=== PATIENT | male | born 1960 | race Caucasian/White ===

== ENCOUNTER → 2020-05-18 02:21 | Outpatient (CLI) | payer OTHER, SELFPAY ==
[2020-05-18 22:46] LABS: SARS-CoV-2 RNA PCR Negative
== END ==
PROVIDERS: PCP Internal Medicine; Visit Provider Internal Medicine Gastroenterology
DX: Z01.812 Encounter for preprocedural laboratory examination (principal); Z20.822 Contact with and (suspected) exposure to COVID-19
CPT/HCPCS: C9803; U0003; U0005

== ENCOUNTER 2020-05-21 00:47 | Day surgery (SDC) | payer OTHER, SELFPAY ==
[2020-05-10 12:40] VITALS: BMI 33.7
[2020-05-21 07:25] VITALS: BMI 32.9
[2020-05-21] MEDS: LACTATED RINGERS 1,000 ML 150 ML IV CONT (07:42)
--- NOTE | 2020-05-21 07:46 | WPDANESEPPF ---
Anes - Initial Pre Proc Eval Procedure: Operation Date: 05/21/20 08:30 Proposed Procedures p Screening Colonoscopy - Alex Sinclair MD Date/Time: 05/21/20 07:46 Surgeon: Alex Sinclair MD Pre Op Diagnosis: Neoplasm Screening Patient Data Age: 59 Gender: M Height: 6 ft 2 in Weight: 116.4 kg Allergies Allergy/AdvReac Type Severity Reaction Status Date / Time prochlorperazine Allergy Severe CONVULSONS/MUSCLE Verified 05/21/20 07:22 JERKS Home Medications Medication Instructions Recorded Confirmed Type verapamil 180 mg 24 hr 180 mg PO DAILY #90 cap 09/02/19 05/10/20 Rx capsule,extended release testosterone cypionate 200 mg/mL 200 mg IM .COMPLEX #10 ml 12/09/19 05/10/20 Rx intramuscular oil fenofibrate nanocrystallized 145 145 mg PO DAILY #90 tablet 12/19/19 05/10/20 Rx mg tablet lisinopril 20 mg tablet 20 mg PO DAILY #90 tablet 12/23/19 05/10/20 Rx syringe with needle 3 mL 23 x 1 See Rx Instructions .ROUTE 02/13/20 05/10/20 Rx .COMPLEX #6 syringe atorvastatin 20 mg tablet See Rx Instructions .ROUTE 04/05/20 05/10/20 Rx .COMPLEX #30 tablet sodium,potassium,mag sulfates 17.5 See Rx Instructions PO .COMPLEX 04/22/20 05/10/20 Rx gram-3.13 gram-1.6 gram oral soln #354 ml dextroamphetamine-amphetamine ER 20 mg PO DAILY #30 cap 05/06/20 05/10/20 Rx 20 mg 24hr capsule,extend release venlafaxine 150 mg PO DAILY 05/10/20 05/10/20 History Patient hx anesthesia problems: none Family hx anesthesia problems: none PMFSH Past Medical History Medical History Left forearm fracture Left wrist fracture Screening for colon cancer Surgical History Surgical History Hx of hernia repair Family History Family History Sibling Family history of mental disorder Mother Family history of lung cancer Father Colon polyp Social History Social History Smoking status: Never smoker Alcohol intake: never Living arrangements: with family Gender identity (if verbalized by the patient): Male Spiritual care concerns: No Anes - Eval Final PreProcedure Day of Procedure 05/21/20 07:46 Patient weight: obese Heart: regular rate and rhythm Lungs: clear to auscultation Airway: Mallampati scale class II Neurological: alert and oriented Last oral intake: >/= 8 hours ASA classification: III Emergent: no Anesthetic plan: proceed Anesthesia type and monitoring: general GIVS and standard monitoring Informed Consent: The patient's anesthetic plan and its attendant risks and benefits were discussed with the patient/family/POA. Questions were solicited and answers provided to the satisfaction of the patient/family/POA.
--- NOTE | 2020-05-21 07:57 | PM.HPGS ---
History of Present Illness History of Present Illness Consent: Risks, benefits, and alternatives have been discussed and questions answered. Patient agrees to proceed with procedure. Chief complaint: Neoplasm Screening Narrative: Kavon Cortez is a 59 year old male here for screening colonoscopy, last one 8 years ago with polyp, grandfather with colon cancer Review of Systems Constitutional: Constitutional: Denies headache(s) and Denies weakness Eyes: Eyes: Denies blurry vision ENT: Reports Normal hearing present, Denies headache(s) and Denies neck pain Cardiovascular: Cardiovascular: Denies chest pain and Denies dyspnea Respiratory: Respiratory: Denies dyspnea Gastrointestinal: Gastrointestinal: Reports no additional gastrointestinal complaints Genitourinary: Genitourinary: Denies dysuria Musculoskeletal: Musculoskeletal: Denies neck pain Integumentary/Breasts: Skin/Breast: Denies dry skin Neurologic: Reports Normal hearing present, Denies headache(s) and Denies weakness Psychiatric: Psychiatric: Denies anxiety Endocrine: Endocrine: Denies change in body appearance Hematologic/Lymphatic: Hematologic/Lymphatic: Denies easy bleeding Allergic/Immunologic: Allergic/Immunologic: Denies urticaria PMFSH Past Medical History Medical History Left forearm fracture Left wrist fracture Screening for colon cancer Surgical History Surgical History Hx of hernia repair Family History Family History Sibling Family history of mental disorder Mother Family history of lung cancer Father Colon polyp Social History Social History Smoking status: Never smoker Alcohol intake: never Living arrangements: with family Gender identity (if verbalized by the patient): Male Spiritual care concerns: No Meds Home Medications and Allergies Home Medications Medication Instructions Recorded Confirmed Type verapamil 180 mg 24 hr 180 mg PO DAILY #90 cap 09/02/19 05/10/20 Rx capsule,extended release testosterone cypionate 200 mg/mL 200 mg IM .COMPLEX #10 ml 12/09/19 05/10/20 Rx intramuscular oil fenofibrate nanocrystallized 145 145 mg PO DAILY #90 tablet 12/19/19 05/10/20 Rx mg tablet lisinopril 20 mg tablet 20 mg PO DAILY #90 tablet 10/13/20 03/01/21 Rx syringe with needle 3 mL 23 x 1 See Rx Instructions .ROUTE 02/13/20 05/10/20 Rx .COMPLEX #6 syringe atorvastatin 20 mg tablet See Rx Instructions .ROUTE 04/05/20 05/10/20 Rx .COMPLEX #30 tablet sodium,potassium,mag sulfates 17.5 See Rx Instructions PO .COMPLEX 04/22/20 05/10/20 Rx gram-3.13 gram-1.6 gram oral soln #354 ml dextroamphetamine-amphetamine ER 20 mg PO DAILY #30 cap 05/06/20 05/10/20 Rx 20 mg 24hr capsule,extend release venlafaxine 150 mg PO DAILY 05/10/20 05/10/20 History Allergies Allergy/AdvReac Type Severity Reaction Status Date / Time prochlorperazine Allergy Severe CONVULSONS/MUSCLE Verified 05/21/20 07:22 JERKS Exam Const: General: comfortable and no acute distress HENMT: General nose exam: Normal nares present Eyes: General: appearance normal, both eyes and all related structures Neck: Neck: no JVD Resp: Auscultation: clear to auscultation bilaterally Cardio: Rate: regular rate Rhythm: regular rhythm GI: Inspection: non-distended GI Palp: Yes Soft to palpation Skin: General skin exam: normal color Neuro: General: gait normal Speech: normal speech Extrem: General: normal to inspection Psych: Mental Status: mental status grossly normal Assessment and Plan Assessment and plan (1) Screening for colon cancer: Code(s): Z12.11 - Encounter for screening for malignant neoplasm of colon Status: Acute Assessment and Plan: proceed with
[2020-05-21 08:26] VITALS: BP 126/79; PULSE 73; RESP 20; O2SAT 96
[2020-05-21 08:36] VITALS: BP 128/83; PULSE 74; RESP 24; O2SAT 95
[2020-05-21 08:46] VITALS: BP 130/93; PULSE 69; RESP 17; O2SAT 96
== END 2020-05-21 08:53 | disposition home or self-care (01) ==
PROVIDERS: PCP Internal Medicine; Visit Provider Internal Medicine Gastroenterology
PROC: 0DJD8ZZ Inspection of Lower Intestinal Tract, Via Natural or Artificial Opening Endoscopic (ICD-10-PCS; CPT 45378; principal; 2020-05-21 08:30)
DX: Z12.11 Encounter for screening for malignant neoplasm of colon (principal); K63.5 Polyp of colon; K57.30 Diverticulosis of large intestine without perforation or abscess without bleeding; K64.4 Residual hemorrhoidal skin tags; E66.9 Obesity, unspecified; Z68.32 Body mass index [BMI] 32.0-32.9, adult
CPT/HCPCS: 45385; 88305; C9803; J2704; J7120; U0003; U0005

== ENCOUNTER 2024-03-07 15:15 | Emergency (ER) | payer OTHER, SELFPAY ==
[2024-03-07 15:38] VITALS: BP 157/106; PULSE 87; RESP 18; TEMP 36.4; O2SAT 97
== END 2024-03-07 16:29 | disposition left against medical advice (07) ==
LOC: ANHED 16:12
PROVIDERS: PCP Nurse Practitioner Family
DX: R51.9 Headache, unspecified (principal); R53.83 Other fatigue
CPT/HCPCS: 99199

== ENCOUNTER 2024-06-03 09:46 | Outpatient (CLI) | payer OTHER, SELFPAY ==
--- OUTSIDE RECORDS SUMMARY | 2024-06-03 11:15 | XMS_ITS | Referral Summary ---
Author Organization [facility] Address [facility] [place] [address] Care Team Providers Care Cd Reactor Operator Head Name Role Phone Charley Pierce NP Primary Care Provider [phone] Allergies Active Allergy Reactions Criticality Noted Date Comments Prochlorperazine Other (See comments) Low Muscle spasms Not sure if I'm allergic; I may have taken too much Medications atorvastatin (LIPITOR) 20 mg tablet Take 1 tablet (20 mg total) by mouth daily 4 Active fenofibrate nanocrystallized (TRICOR) 48 mg tablet Take 1 tablet (48 mg total) by mouth daily 4 Active venlafaxine XR (EFFEXOR-XR) 150 mg 24 hr capsule Take 1 capsule (150 mg total) by mouth daily Active lisinopriL (PRINIVIL,ZESTRIL) 40 mg tablet Take 0.5 tablets (20 mg total) by mouth daily 4 Active verapamiL (CALAN) 40 mg tablet Take 1 tablet (40 mg total) by mouth daily Active aspirin 81 mg enteric coated tabletIndications:pr evention of thrombosis Take 1 tablet (81 mg total) by mouth 2 (two) times a day for 14 days 28 tablet 4 Active Active Problems Problem Noted Date Diagnosed Date Pain 07/02/2023 Closed fracture of left proximal humerus 024 Obesity 01/04/2013 Obstructive sleep apnea syndrome 01/03/2013 Hyperlipidemia 01/03/2013 Generalized anxiety disorder 08/11/2010 Social History Tobacco Use Types Packs/Day Years Used Date Smoking Tobacco: Never Smokeless Tobacco: Never Tobacco Cessation:Counseling Given: Not Answered AUDIT-C Answer Date Recorded Q1: How often do you have a drink containing alc ohol? Monthly or less 07/02/2023 Q2: How many drinks containi ng alcohol do you have on a typical day when you are drinking? 1 or 2 07/02/2023 Q3: How often do you have si x or more drinks on one occasion? Never 07/02/2023 Personal Safety Answer Date Recorded Have you ever been in or are you currently in a harmful physical or emotional relationship or is someone making you feel afraid or unsafe? Denies 07/02/2023 Sex and Gender Information Value Date Recorded Sex Assigned at Not on file Legal Sex Male 12:55 PM STRAW BALER Gender Identity Not on file Sexual Orientation Not on file Last Filed Vital Signs Vital Sign Reading Time Taken Comments Blood Pressure 103/69 07/02/2023 4:35 PM CDT Pulse 82 07/02/2023 4:40 PM CDT Temperature 36.6 C (97.9 F) 07/02/2023 2:14 PM CDT Respiratory Rate 16 07/02/2023 4:40 PM CDT Oxygen Saturation 93% 07/02/2023 4:40 PM CDT Inhaled Oxygen Concentration - - Weight 108.9 kg (240 lb) 08/10/2023 6:50 PM CDT Height 188 cm (6' 2 ) 08/10/2023 6:50 PM CDT Body Mass Index 30.81 08/10/2023 6:50 PM CDT Plan of Treatment Not on file Medical Devices Implanted Type Area Key Cutter Device Identifier Shelf Expiration Date Model / Serial / Lot Synthes Lcp Combi Philos [id number] 3 Hole Shaft Lock Compression 241.901 - [id number] Implanted:Qty: 1 on 07/02/2023 by Dedrick Buchanan MD at [facility] Synthes I 241.901 / / NONE Synthes 3.5mm 2.9mm 28mm Self Tap Lock Stardrive Conical Head T15 Full 212.110 - [id number] Implanted:Qty: 2 on 07/02/2023 by Dedrick Buchanan MD at [facility] Left: Humerus Synthes I 212.110 / / NONE Synthes 3.5mm 6mm 30mm 2.5mm Self Tap Small Hexagonal Socket Low Profile 204.830 - [id number] Implanted:Qty: 1 on 07/02/2023 by Dedrick Buchanan MD at [facility] [place] Left: Humerus Synthes I 204.830 / / NONE Synthes 3.5mm 2.9mm 32mm Self Tap Lock Stardrive Conical Head T15 Full 212.112 - [id number] Implanted:Qty: 1 on 07/02/2023 by Dedrick Buchanan MD at [facility] Left: Humerus Synthes I 212.112 / / NONE Synthes 3.5mm 2.9mm 45mm Self Tap Lock Stardrive Conical Head T15 Full 212.119 - [id number] Implanted:Qty: 3 on 07/02/2023 by Dedrick Buchanan MD at [facility] Left: Humerus Synthes I 212.119 / / NONE Synthes 3.5mm 2.9mm 50mm Self Tap Lock Stardrive Conical Head T15 Full 212.121 - [id number] Implanted:Qty: 2 on 07/02/2023 by Dedrick Buchanan MD at [facility] Left: Humerus Synthes I 212.121 / / NONE Synthes 3.5mm 2.9mm 40mm Self Tap Lock Stardrive Conical Head T15 Full 212.117 - [id number] Implanted:Qty: 3 on 07/02/2023 by Dedrick Buchanan MD at [facility] [place] Left: Humerus Synthes I 212.117 / / NONE Explanted Type Area Key Cutter Device Identifier Shelf Expiration Date Model / Serial / Lot Synthes 3.5mm 2.9mm 45mm Self Tap Lock Stardrive Conical Head T15 Full 212.119 - [id number] Explanted:Qty: 1 on 07/02/2023 by Dedrick Buchanan MD at [facility] Left: Humerus Synthes I 212.119 / / Synthes Lyndon 1.25mm 150mm Trocar Tip Wire Fixation Stainless Steel 292.12 - [id number] Explanted:Qty: 2 on 07/02/2023 by Dedrick Buchanan MD at [facility] Left: Humerus Synthes 292.12 / / NONE Synthes Lyndon 2mm 150mm Trocar Point Wire Fixation Nonsterile 292.20 - [id number] Explanted:Qty: 3 on 07/02/2023 by Dedrick Buchanan MD at [facility] [place] Left: Humerus Synthes I 292.20 / / NONE Synthes Lyndon 1.6mm 150mm 5mm Trocar Point Thread Wire Fixation 292.71 - [id number] Explanted:Qty: 2 on 07/02/2023 by Dedrick Buchanan MD at [facility] [place] Left: Humerus Synthes I 292.71 / / [place] [address] [place] [address] [facility] PLUS [facility] PL[facility] Care Teams Cd Reactor Operator Head Relationship Specialty Start Date End Date Charley Pierce NP [address] [place] [address] PCP - General Family Medicine 06/20/23
--- OUTSIDE RECORDS SUMMARY | 2024-06-03 11:15 | XMS_ITS | CONTINUITY OF CARE DOCUMENT ---
Author Name liv steffenchetan Address Unknown Organization [facility] Address [address] [place] [address] Phone [phone] Care Team Providers Care Driver Material Handler Name Role Phone Shahab Krueger MD Unavailable Shahab Krueger MD Unavailable [phone] MANRITASHELBY Unavailable [phone] PROBLEMS Condition Status Date Provider Notes Cardiology examination active Shahab Krueger MD Syncope active Shahab Krueger MD Hyperlipidemia active Shahab Krueger MD Essential hypertension active Shahab Krueger MD Abnormal EKG active Shahab Krueger MD Family hx of myocardial infa rction (VT), premature active Shahab Krueger MD Prediabetes active Shahab Krueger MD Abnormal nuclear stress test active Shahab Krueger MD Echocardiogram, abnormal active Shahab swift MD ENCOUNTERS Date Type Provider Location Encounter Diag nosis - In-person encounter Office Visit Shahab Krueger MD [facility] Abnormal nuclear stress testEchocardiogr am, abnormal - In-person encounter Office Visit Shahab Krueger MD [facility] Cardiology examinationSyncopeHyperlipidemiaEssential hypertensionAbnormal EKGFamily hx of myocardial infarction (VT), prematurePrediabetes VITAL SIGNS Date Observation Value Provider Body Mass Index (Ratio) 31.71 kg/m2 Aditya Krueger MD oxygen saturation, oximetry 97 % Susana Curiel blood pressure, diastolic 78 mm[Hg] Rh erlinda Curiel blood pressure, systolic 118 mm[Hg] Niko Curiel pulse rate 68 /min Susana Curiel weight E&M 247 [lb_av] Susana Curiel Body Mass Index (Ratio) 32.99 kg/m2 Aditya Krueger MD blood pressure, cuff size large Ke rrpankaj Beltrán blood pressure, diastolic 82 mm[Hg] Ke rri Jerel blood pressure, systolic 122 mm[Hg] Rupert Beltrán oxygen saturation, oximetry 96 % Kimberly Beltrán respiratory rate E&M 12 /min Kimberly mackay pulse rate 74 /min Kimberly matthews weight E&M 257 [lb_av] Kimberly springerer height E&M 74 [in_i] Kimberly matthews ALLERGIES No Known Drug Allergies HISTORY OF MEDICATION USE Medication Status Instructions Dates Provider Indications Com ments aspirin 81 mg tablet,chewable active CHEW 1 TABLET BY MOUTH ONCE DAILY Jordi Mckeon aspirin 81 mg tablet,chewable completed 1 TABLET BY MOUTH DAILY MUST FILL 3 MONTH SUPPLY PER MEDICAID - Jordi Mckeon carvedilol 3.125 mg tablet active TAKE 1 TABLET BY MOUTH TWICE DAILY Shahab Krueger MD fenofibrate nanocrystallized 48 mg tablet active TAKE 1 TABLET BY MOUTH EVERY DAY Kimberly Beltrán venlafaxine 150 mg capsule,extended release 24hr active TAKE 1 CAPSULE BY MOUTH EVERY DAY Kimberly Beltrán lisinopril 20 mg tablet active TAKE 1 TABLET BY MOUTH EVERY DAY Kimberly Beltrán hydrocodone-acetam inophen 5-325 mg tablet active TAKE 1 TABLET BY MOUTH EVERY 6 HOURS NEEDED FOR SEVERE PAIN Kimberly Beltrán verapamil unspecified unspecified active 180mg a day Kimbelry Beltrán Lipitor 20 mg tablet active Take 1 tablet by mouth once a day Kimberly Beltrán SOCIAL HISTORY Date Observation Value Provider number of grandchildren Shahab Krueger MD smoking status Never smoker Shahab Krueger MD INSURANCE PROVIDERS Payer name Policy type / Coverage type [place] [employer] S [id number] ADVANCE DIRECTIVES Name Date DISCUSSED - NO DECISION MADE TREATMENT PLAN Date Name Performer Cardiology Shahab Krueger MD Cardiology Shahab Krueger MD Cardiology:Dilated L V and abnormal stress vidya, needs cardiac cath to define cardiac anataomy, starting beta khloe and aspirin Shahab Krueger MD Cardiology Shahab Krueger MD Cardiology Shahab Krueger MD Cardiology: H is updated medication list for this problem includes: Fenofibrate Nanocrystallized 48 Mg Tablet (Fenofibrate nanocrystallized) ..... Take 1 tablet by mouth every day Lipitor 20 Mg Tablet (Atorvastatin) ..... Take 1 tablet by mouth once a day Shahab Krueger MD Cardiology: B P today: 122/82 His updated medication list for this problem includes: Lisinopril 20 Mg Tablet (Lisinopril) ..... Take 1 tablet by mouth every day Verapamil Unspecified Unspecified (Verapamil) ..... 180mg a day Shahab Krueger MD Cardiology Shahab Krueger MD Date Name CT Angio Coronaries PROTHROMBIN TIME WIT H INR LIPID PANEL CBC (INCLUDES DIFF/P LT) BASIC METABOLIC PANE L W/EGFR Complete Echo Holter Monitor 48 hr Stress Exercise Card iolite HISTORY OF PROCEDURES Procedure Date Procedure Name Provider Procedure Notes S tatus EKG Fabricio Prasad MD complet ed
--- OUTSIDE RECORDS SUMMARY | 2024-06-03 11:15 | XMS_ITS | Clinical Summary ---
Author Organization [facility] Address [address] [place] [address] Care Team Providers Care Phd Internship Name Role Phone Unavailable Primary Care Provider Unavailabl e Source Comments [facility],non-owned Affiliates and Associated Physician Practices is amultiple site organization consisting of ambulatory clinics and hospital sitesin [place], [place], [place] and [place]. This disclosure is being madepursuant to the Care Everywhere program and may not contain all information available regarding this patient. Last updated 17.[facility] Allergies Active Allergy Reactions Criticality Noted Date Comments Prochlorperazine Myalgias 07/24/2018 Medications * Be aware that medications may not be up to date on this document. Alwaysverify current medications with the patient. Medication Sig Dispensed Refills Start Date End Date Status amphetamine-dextroam phetamine (ADDERALL) 20 MG tablet Take 20 mg by mouth every morning Active venlafaxine XR 24hr (EFFEXOR XR) 150 MG capsule Take 150 mg by mouth daily with breakfast Active VERAPAMIL HCL ER PO Activ e LISINOPRIL PO Active ATORVASTATIN CALCIUM PO Active OtherIndications:BP pill Reasons: BP pill Active fluticasone propionate (FLONASE) 50 MCG/ACT nasal sprayIndications:Raza al Signs and Symptoms Romeo 2 sprays into each nostril once daily Reasons: Signs and Symptoms of Nose Diseases 1 bottles 07/24/2018 Active Social History Tobacco Use Types Packs/Day Years Used Date Smoking Tobacco: Passive Smo ke Exposure - Never Smoker Smokeless Tobacco: Never Sex and Gender Information Value Date Recorded Sex Assigned at Not on file Gender Identity Not on file Sexual Orientation Not on file Last Filed Vital Signs Vital Sign Reading Time Taken Comments Blood Pressure 106/74 07/24/2018 3:48 PM CDT Pulse 72 07/24/2018 3:48 PM CDT Temperature 37.6 C (99.6 F) 07/24/2018 3:48 PM CDT Respiratory Rate 19 07/24/2018 3:48 PM CDT Oxygen Saturation 97% 07/24/2018 3:48 PM CDT Inhaled Oxygen Concentration - - Weight 108.9 kg (240 lb) 07/24/2018 3:48 PM CDT Height 188 cm (6' 2 ) 07/24/2018 3:48 PM CDT Body Mass Index 30.81 07/24/2018 3:48 PM CDT Plan of Treatment Health Maintenance Due Date Last Done Comments COLOGUARD (AGES 45-75) - COL ON CA SCREENING 1961 COLON MONITORING 1961 COLONOSCOPY - COLON CA SCREENING 1961 CT COLONOGRAPHY - COLON CA SCREENING 1961 Colorectal Cancer Screening 1961 FIT - COLON CA SCREENING 1961 FLEX SIG - COLON CA SCREENING 1961 HIV SCREENING 1976 HEPATITIS C SCREENING 08/19/1979 DTAP/TDAP/TD VACCINES (1 - Tdap) 1980 PNEUMOCOCCAL VACCINE 50+ (1 of 1 - PCV) 08/24/2011 ZOSTER VACCINE (1 of 2) 08/24/2011 SCREENING FOR DIABETES 07/24/2018 COVID-19 VACCINE (1 - 2023-2 5 season) 2023 INFLUENZA VACCINE (#1) 2023 DEPRESSION SCREENING 03/12/2024 Respiratory Syncytial Virus (RSV) Vaccine Pt: or over 60 yrs (1 - 1-dose 75+ series) 2036 HEPATITIS B VACCINE Aged Out No longe r eligible based on patient's age to complete this topic HIB VACCINE Aged Out No longer eligi ble based on patient's age to complete this topic HPV VACCINE Aged Out No longer eligi ble based on patient's age to complete this topic MENINGOCOCCAL (Group B) VACC INE SHARED DECISION-MAKING Aged Out No longer eligibl e based on patient's age to complete this topic MENINGOCOCCAL GROUPS A/C/Y/W VACCINE Aged Out No longer eligible b ased on patient's age to complete this topic PNEUMOCOCCAL VACCINE Aged Out No long er eligible based on patient's age to complete this topic
--- OUTSIDE RECORDS SUMMARY | 2024-06-03 11:15 | XMS_ITS | Clinical Summary ---
Author Organization [facility] Address [address] [place] [address] Care Team Providers Care Area Plant Manager Name Role Phone Miguel Tyler DO Primary Care Provider [phone] Allergies No known active allergies Social History Tobacco Use Types Packs/Day Years Used Date Smoking Tobacco: Never Smokeless Tobacco: Never Alcohol Use Standard Drinks/Week Comments Never 0 (1 standard drink = 0.6 oz pur e alcohol) AUDIT-C Answer Date Recorded Q1: How often do you have a drink containing alc ohol? Never 09/26/2020 Average Number of Drinks Not on file 021 Frequency of Binge Drinking Not on file 09/09 Sex and Gender Information Value Date Recorded Sex Assigned at Not on file Legal Sex Male 2:22 PM CDT Gender Identity Not on file Sexual Orientation Not on file Last Filed Vital Signs Vital Sign Reading Time Taken Comments Blood Pressure 136/86 09/26/2020 2:27 PM CDT Pulse 94 09/26/2020 2:27 PM CDT Temperature 37 C (98.6 F) 09/26/2020 2:27 PM CDT Respiratory Rate 18 09/26/2020 2:27 PM CDT Oxygen Saturation 98% 09/26/2020 2:27 PM CDT Inhaled Oxygen Concentration - - Weight 108.9 kg (240 lb) 09/26/2020 2:27 PM CDT Height 188 cm (6' 2 ) 09/26/2020 2:27 PM CDT Body Mass Index 30.81 09/26/2020 2:27 PM CDT Plan of Treatment Health Maintenance Due Date Last Done Comments Colorectal Cancer Screening Colonoscopy (10 Years) 1961 Annual Physical 1964 Hepatitis C 08/24/1979 DTaP, Tdap and Td Vaccines ( 1 - Tdap) 1980 Zoster Vaccines (1 of 2) 08/24/2011 COVID-19 Vaccine (1 - 2023-2 5 season) 2023 Influenza Adult (#1) 2023 RSV Immunization or 60+ Years (1 - 1-dose 75+ series) 2036 Meningococcal B Vaccine Aged Out No l onger eligible based on patient's age to complete this topic Meningococcal Vaccine Aged Out No adelso sudha eligible based on patient's age to complete this topic Pneumococcal Vaccine: Pediat rics (0 to 5 Years) and At-Risk Patients (6 to 64 Years) Aged Out No longer eligible b ased on patient's age to complete this topic RSV Immunizations Under 20 Months Aged Out No longer eligible based on patient's age to complete this topic Insurance Care Teams Area Plant Manager Relationship Specialty Start Date End Date Miguel Tyler DO [address] [address] PCP - General INTERNAL MEDICINE 09/26/20
--- OUTSIDE RECORDS SUMMARY | 2024-06-03 11:16 | XMS_ITS | Clinical Summary ---
Author Organization [facility] Address [address] [place] [id number] Care Team Providers Care Quality Improvement Coordinator Name Role Phone Charley Pierce NP Primary Care Provider [phone] Allergies Active Allergy Reactions Criticality Noted Date [...] 01/03/2013 Hyperlipidemia 01/03/2013 Generalized anxiety disorder 08/11/2010 Surgical History Surgery Date Site/Laterality Comments ELBOW SURGERY Left Elbow Surgery - (Added by TW Conv)-with plates/12 screws OH UNLISTED PROCEDURE ABDOME N PERITONEUM & OMENTUM Right inguinal Hernia Repair - (Added by TW Conv)- COLONOSCOPY Medical History Medical History Date Comments Personal history of other me ntal and behavioral disorders History of anxiety disorder - (Added by TW Conv)-well controlled HTN (hypertension) HLD (hyperlipidemia) ADD (attention deficit disorder) not currently on meds Pre-diabetes no meds yet ANGELA on CPAP Family History Medical History Relation Name Comments Hypertension Father Hypertension - (Added by TW Conv) Relation Name Status Comments Father Social History Tobacco Use Types Packs/Day Years [...] on file 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 Gender Identity Not on file Sexual Orientation Not on file Obstetrics History Last Filed Vital Signs Vital Sign Reading [...] 08/10/2023 6:50 PM CDT Plan of Treatment Health Maintenance Due Date Last Done Comments Colon Cancer Screening-Colonoscopy 1961 Depression Screening 1961 Hepatitis C Screening 1961 Prostate Cancer Screening-PSA 1961 DTaP/Tdap/Td Vaccine (1 - Tdap) 1972 Hepatitis B Screening 08/24/1979 Regular Well Visit/Exam 18-64 08/24/1979 Zoster Vaccine (1 of 2) 08/24/2011 Influenza Vaccine (#1) 2023 01/16/2013 Pneumococcal vaccine <65 Aged Out No longer eligible based on patient's age to complete this topic Medical Devices Implanted Type Area Panel Beater Device Identifier Shelf Expiration Date Model / Serial / Lot Synthes Lcp Combi Philos [id number] 3 Hole Shaft Lock Compression 241.901 - [id number] Implanted:Qty: 1 on 07/02/2023 by Dedrick Buchanan MD at [facility] Synthes I 241.901 / / NONE Synthes 3.5mm 2.9mm 28mm Self Tap Lock Stardrive Conical Head T15 Full 212.110 - [id number] Implanted:Qty: 2 on 07/02/2023 by Dedrick Buchanan MD at [facility] Left: Humerus Synthes I 212.110 / / NONE Synthes 3.5mm 6mm 30mm 2.5mm Self Tap Small Hexagonal Socket Low Profile 204.830 - [id number] Implanted:Qty: 1 on 07/02/2023 by Dedrick Buchanan MD at [facility] Left: Humerus Synthes I 204.830 / / NONE Synthes 3.5mm 2.9mm 32mm Self Tap Lock Stardrive Conical Head T15 Full 212.112 - [id number] Implanted:Qty: 1 on 07/02/2023 by Dedrick Buchanan MD at [facility] Left: Humerus Synthes I 212.112 / / NONE Synthes 3.5mm 2.9mm 45mm Self Tap Lock Stardrive Conical Head T15 Full 212.119 - [id number] Implanted:Qty: 3 on 07/02/2023 by Dedrick Buchanan MD at [facility] Left: Humerus Synthes I 212.119 / / NONE Synthes 3.5mm 2.9mm 50mm Self Tap Lock Stardrive Conical Head T15 Full 212.121 - [id number] Implanted:Qty: 2 on 07/02/2023 by Dedrick Buchanan MD at [facility] Left: Humerus Synthes I 212.121 / / NONE Synthes 3.5mm 2.9mm 40mm Self Tap Lock Stardrive Conical Head T15 Full 212.117 - [id number] Implanted:Qty: 3 on 07/02/2023 by Dedrick Buchanan MD at [facility] Left: Humerus Synthes I 212.117 / / NONE Explanted Type Area Panel Beater Device Identifier Shelf Expiration Date Model / Serial / Lot Synthes 3.5mm 2.9mm 45mm Self Tap Lock Stardrive Conical Head T15 Full 212.119 - [id number] Explanted:Qty: 1 on 07/02/2023 by Dedrick Buchanan MD at [facility] Left: Humerus Synthes I 212.119 / / Synthes Lyndon 1.25mm 150mm Trocar Tip Wire Fixation Stainless Steel 292.12 - [id number] Explanted:Qty: 2 on 07/02/2023 by Dedrick Buchanan MD at [facility] Left: Humerus Synthes 292.12 / / NONE Synthes Lyndon 2mm 150mm Trocar Point Wire Fixation Nonsterile 292.20 - [id number] Explanted:Qty: 3 on 07/02/2023 by Dedrick Buchanan MD at [facility] Left: Humerus Synthes I 292.20 / / NONE Synthes Lyndon 1.6mm 150mm 5mm Trocar Point Thread Wire Fixation 292.71 - [id number] Explanted:Qty: 2 on 07/02/2023 by Dedrick Buchanan MD at [facility] Left: Humerus Synthes I 292.71 / / NONE Insurance [facility] CHOICE PLUS [facility] PL[facility] Care Teams Quality Improvement Coordinator Relationship Specialty Start Date End Date Charley Pierce NP [address] [place] [address] PCP - General Family Medicine 06/20/23
--- NOTE | 2024-06-23 10:35 | WPDSLEEPSTUD ---
Sleep Study Date of Study: 06/03/24 Ordering Provider: Charley Pierce APRN Interpreting Physician: Nubia Bell MD Sleep Study Type: Split Polysomnogram Height: 1.88 m Weight: 111.13 kg Body Mass Index: 31.4 Neck Circumference (inches): 18.5 [place]: 5 Reason for Sleep Study Known obstructive sleep apnea, CPAP broke, patient went 6 months without it; he is re-testing to qualify for a new machine and be compliant with DOT regulations. * 10/31/2007, BMI was 32.7; split night study AHI 21.9, lowest saturation 82%; optimal pressure was CPAP 12 cm. his residual AHI was 0.8. Sleep History Kavon Cortez is a 63-year-old man with a history of obstructive sleep apnea, re-qualify for CPAP equipment. His CPAP broke, leaving him off treatment for 6 months. 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 His significant medical comorbidities include hypertension, LV dysfunction, and anxiety. He rarely awakens from sleep feeling short of breath. He rarely wakes at night with heartburn, belching or coughing.??He constantly snores, and it is always loud enough that others complain. He constantly has trouble sleeping when he has a cold. He never wakes up gasping for breath during the night. He occasionally has breathing problems at night. He frequently sweats excessively at night. He rarely notices his heart pounding or beating irregularly during the night. He occasionally falls asleep during the day. He never falls asleep involuntarily, never falls asleep while driving. He never experiences loss of muscle tone with strong emotion. He never has daytime difficulty at work due to excessive sleepiness. He never feels paralyzed on waking or falling asleep. He occasionally experiences vivid dreams upon waking or falling asleep. He never feels afraid of going to sleep. He occasionally has nightmares. He occasionally recalls his dreams. He frequently has thoughts racing through his mind. He rarely feels sad or depressed. He rarely feels anxiety. He never notices parts of his body jerk. He never kicks during the night. He never feels crawling or aching feelings in his legs. He never feels leg pain at night. He never has morning jaw pain, never grinds his teeth at night. He never feels bothered by pain during the day, is never awakened by pain during the night. He occasionally wakes up feeling stiff in the morning, and he occasionally wakes feeling sore or achy. He rarely awakens with pain in his neck, spine, or joints. He has fatigue and concentration difficulties. He plans social events but sometimes he is just too tired to attend so he is missing out on some social activities due to sleepiness. Normal bedtime is 11:00 p.m., falling asleep within 10-15 minutes, typically waking between 4 and 5 times at night. While awake, he goes to the bathroom and gets a drink of water, returning to sleep within 10 minutes.. He reports getting an average of 7 hours of sleep at night. He takes naps in the day, however he does not feel refreshed after short 10-15 minute nap. He is usually drowsy for 1 hour after waking. He feels better in the afternoon compared to other times of day. Habits:??Tobacco: Never smoked Caffeine:2 servings daily Alcohol:none Recreational substances: none PMFSH Past Medical History Medical History (Updated 06/23/24 @ 10:47 by Nubia Bell MD) Left ventricular dilatation Essential hypertension Humerus fracture Anxiety Prediabetes Screening for colon cancer Attention deficit disorder Left forearm fracture Left wrist fracture Hypogonadism male Mixed hyperlipidemia Surgical History Surgical History Hx of hernia repair Family History Family History Sibling Family history of mental disorder Mother Family history of lung cancer Father Colon polyp Social History Social History Smoking status: Never smoker Second hand tobacco smoke exposure: No Alcohol intake: former Alcohol use details: social Substance use: never Substance use type: does not use Lack of Transportation: No Lack of Food: Never True Current Housing: I Have Housing Concerned About Future Housing: No Difficulty Paying Gas/Electric Bills: No Difficulty Paying for Meds: No Currently Unemployed: No Education: Bachelor's Degree Difficulty w/ Childcare or Family Care: No Living arrangements: with family Gender identity (if verbalized by the patient): Male Spiritual care concerns: No Medications Home Medications ?Medication ?Instructions ?Recorded ?Confirmed ?Type atorvastatin 20 mg tablet 20 mg PO DAILY #90 tabs 02/15/24 05/15/24 Rx venlafaxine 150 mg 150 mg PO DAILY #90 caps 03/06/24 05/15/24 Rx capsule,extended release 24 hr lisinopril 20 mg tablet 20 mg PO DAILY #90 tabs 03/26/24 05/15/24 Rx verapamil 180 mg tablet,extended 180 mg PO DAILY #90 tabs 03/26/24 05/15/24 Rx release syringe with needle 3 mL 23 x 1 See Rx Instructions .Route 05/07/24 05/15/24 Rx (BD Luer-Grace Syringe) .COMPLEX #30 syringes testosterone cypionate 200 mg/mL 200 mg IM .COMPLEX #6 mL 05/07/24 05/15/24 Rx intramuscular oil Sleep Procedure A split night polysomnogram using the Simple Lifeforms multi-channel system recorded the standard physiologic parameters including EEG, EOG, submentalis EMG, anterior tibialis EMG, EKG, body position, nasal and oral airflow using nasal pressure sensor and thermistor. Respiratory parameters of chest and abdominal movements were recorded with Respiratory Inductance Plethysmography belts. Oxygen saturation was recorded by pulse oximetry. Video monitoring was also performed. Sleep stages, periodic limb movements, and EEG arousals were scored in 30 second epochs according to the criteria of the AASM Scoring Manual. The Apnea-Hypopnea Index was calculated using CMS guidelines for definition of hypopnea while scoring respiratory events. After the baseline portion the patient met criteria for a titration with an AHI of 22.2 and desaturation to 87%. Titration was started with the patient wearing a medium ResMed AirFit N30 nasal mask and heated humidity, initial pressure was 5 cm, increased to 7 cm with improvement in the AHI. Patient was increased to 9 cm for comparison. At CPAP 9 cm, patient spent 28 minutes in bed, 0.5 minutes awake, 27.5 minutes in non-REM, no time in REM. Sleep efficiency was 98.2%. The residual apnea-hypopnea index was 0 and the minimum saturation was 92%. There was no REM at this setting but patient had REM at CPAP 5 and 7 however saturations were borderline. I am recommending 9 cm as the optimal pressure. Sleep Architecture During the diagnostic portion of the study, the total recording time was 206.1 minutes. The total sleep time was 157.0 minutes. Sleep latency was 7.5 minutes. REM latency was - minutes. Sleep Efficiency was 76.2%. The patient had 30 awakenings for an awakening index of 11.5. Wake after sleep onset time was 41.5 minutes. The patient spent 63.5 minutes, 40.4% of total sleep time in Stage N1. The patient spent 93.5 minutes, 59.6% in Stage N2. The patient spent no time in Stage N3 or Stage REM sleep. At 01:42:08 AM the patient was placed on PAP treatment and was titrated at pressures ranging from 5 cm to 9 cm. During the treatment portion of the study, the total recording time was 257.9 minutes. The total sleep time was 213.5 minutes. Sleep latency was 2.5 minutes. REM latency was 5.0 minutes. Sleep Efficiency was 82.8%. Wake after Sleep Onset time was 42.0 minutes. The patient spent 38.0 minutes, 17.8% of total sleep time in Stage N1. The patient spent 100.0 minutes, 46.8% in Stage N2. The patient spent no time in Stage N3. The patient spent 75.5 minutes, 35.4% in Stage REM. Respiratory Analysis During the diagnostic portion of the study, the patient had 49 hypopneas, 8 obstructive apneas, 1 mixed apnea, and no central apneas for an overall Apnea Hypopnea Index of 22.2 events per hour. The REM Apnea Hypopnea Index was 0, no REM on the baseline. The NREM Apnea Hypopnea Index was 22.2. The patient had a Central Apnea Hypopnea Index of 0. There were no Respiratory Effort Related Arousals. The Respiratory Disturbance Index is 30.6 events per hour. There was no evidence of Tawanda-Marie Respirations. During the treatment portion of the study, the patient had 12 hypopneas, 9 obstructive apneas, 1 mixed apnea, and 2 central apneas for an overall Apnea Hypopnea Index of 6.7 events per hour. The REM Apnea Hypopnea Index was 3.2. The NREM Apnea Hypopnea Index was 8.7. The patient had a Central Apnea Hypopnea Index of 0.6. There were no Respiratory Effort Related Arousals. The Respiratory Disturbance Index is 10.1 events per hour. There was no evidence of Tawanda-Marie Respirations. Arousals During the diagnostic portion of the study, there were a total of 141 arousals for an arousal index of 53.9. There were 59 respiratory arousals for an index of 22.5. There were 39 periodic limb movement arousals for an index of 14.9. There were 6 isolated limb movement arousals for an index of 2.3. There were 38 spontaneous arousals for an index of 14.5. During the treatment portion of the study, there were a total of 61 arousals for an index of 17.1. There were 17 respiratory arousals for an index of 4.8. There were 7 periodic limb movement arousals for an index of 2.0. There were 10 isolated limb movement arousals for an index of 2.8. There were 27 spontaneous arousals for an index of 7.6. Periodic Limb Movements During the diagnostic portion of the study, the patient had 20 isolated limb movements with an index of 7.6. The patient had 281 periodic limb movements with an index of 107.4. The patient had a total of 301 limb movements with a total limb movement index of 115.0. During the treatment portion of the study, the patient had 42 isolated limb movements with an index of 11.8. The patient had 64 periodic limb movements with an index of 18.0. The patient had a total of 106 limb movements with a total limb movement index of 29.8. Oximetry Data During the diagnostic portion of the study, the patient had an average oxygen saturation of 93% in wake with a minimum oxygen saturation of 88% and a maximum oxygen saturation of 98%. The patient had an average oxygen saturation of 92% in sleep with a minimum oxygen saturation of 87% and a maximum oxygen saturation of 98%. The patient had 89 oxygen desaturations resulting in an Oxygen Desaturation Index of 34.0. The patient spent 0.9 minutes, 0.5% of total sleep time with an oxygen saturation less than 88%. During the treatment portion of the study, the patient had an average oxygen saturation of 940% in wake with a minimum oxygen saturation of 88% and a maximum oxygen saturation of 98%. The patient had an average oxygen saturation of 93.5% in sleep with a minimum oxygen saturation of 88% and a maximum oxygen saturation of 98%. The patient had 44 oxygen desaturations resulting in an Oxygen Desaturation Index of 12.4. The patient spent 0.1 minute, 0.1% of total sleep time with an oxygen saturation less than 88%. Snoring Profile Snoring was mild to moderate, eliminated at the optimal pressure. Cardiac Profile During the baseline, EKG showed normal sinus rhythm, average pulse 71 bpm, minimum pulse 55 bpm, maximum pulse 89 bpm. No arrhythmias occurred. During the titration, EKG showed normal sinus rhythm, average pulse 62 bpm, minimum pulse 47 bpm, maximum pulse 90 bpm. No arrhythmias noted. EEG Profile EEG was unremarkable, no evidence of seizures. Assessment and Plan Assessment and Plan (1) ANGELA (obstructive sleep apnea): Code(s): G47.33 - Obstructive sleep apnea (adult) (pediatric) Status: Acute Assessment and Plan: This split night sleep study on June 03, 2024 shows moderate obstructive sleep apnea, apnea-hypopnea index overall was 22.2 with desaturation 87% and no REM on the baseline. Successful titration occurred using a medium ResMed med AirFit N30 nasal mask with heated humidity with CPAP 9 cm. At CPAP 9 cm, patient spent 28 minutes in bed, 0.5 minutes awake, 27.5 minutes in non-REM, no time in REM. Sleep efficiency was 98.2%. The residual apnea-hypopnea index was 0 and the minimum saturation was 92%. The patient should be prescribed this ResMed equipment as well as tubing, filters and reservoir. This should be used with all episodes of sleep. Compliance should be reviewed within 31-90 days of starting therapy for usage greater than 4 hours per night greater than 70% of the nights. The patient should be asked about symptoms such as excessive daytime sleepiness, quality of sleep, decreased nocturia, increased mental functioning such as memory, mood, and concentration. The patient had a sleep study in 2007 when his BMI was the same as it is now, 32, and his study results were very similar. His optimal pressure was 12 cm. On this study, 9 cm was effective. If the patient does not have good compliance or the events are elevated at 9 cm, cautious increasing of the study Pap to 10 cm 11 cm would be appropriate. Patient to be caution not to operate heavy equipment or drive when drowsy. He had elevated periodic limb movements on the baseline and the titration however he did not have an elevated periodic limb movement arousal index. Clinical correlation is recommended. If his sleep does not feel restorative on the optimal pressure, consider checking a ferritin level as iron deficiency anemia can be associated with excessive limb movements at night, and excessive limb movements can disrupt sleep. Ferritin should be 75 ng/mL or greater. If ferritin is below this, iron supplementation should be given to achieve ferritin of 75 ng/mL. There are nonpharmacologic methods to treat limb movements including daily exercise, stretching calf muscles before bed, avoiding excessive amounts of caffeine and alcohol, vitamin B supplementation, magnesium lotion massaged into legs before bed, and use of a weighted blanket. BMI is 31. Weight management is advised. Clinical data suggests that weight loss of 10% can reduce the severity of respiratory events and snoring and improve AHI by as much as 25%. Data The data obtained during this sleep study is adequate for interpretation. Certification This sleep study has been reviewed by a board certified sleep medicine physician.
[2024-06-23 11:23] VITALS: BMI 31.4
== END 2024-06-04 06:43 | disposition home or self-care (01) ==
PROVIDERS: PCP Nurse Practitioner Family; Visit Provider Nurse Practitioner Family
DX: G47.33 Obstructive sleep apnea (adult) (pediatric) (principal)
CPT/HCPCS: 95811

== ENCOUNTER 2025-02-27 10:57 | Outpatient (CLI) | payer OTHER, SELFPAY ==
--- OUTSIDE RECORDS SUMMARY | 2025-01-27 04:00 | XMS_ITS | Continuity of Care Document ---
Author Organization [facility] Address [address] [place] [phone] Phone Care Team Providers Care Sas Administrator Name Role Phone Shannon MONTAÑO, FACC, Karthikeyan Unavailable Unavail able Allergies, Adverse Reactions, Alerts Substance Reaction Status Criticality No Known Allergies Active No Inform ation Medications Medication Instructions Dosage Effective Dates (start - stop) Status Comments atorvastatin 20 mg tablet TAKE 1 TABLET BY MOUTH DAILY - Active lisinopril 20 mg tablet TAKE 1 TABLET BY MOUTH EVERY DAY - Active venlafaxine ER 150 mg capsule,extended release 24 hr TAKE 1 CAPSULE BY MOUTH EVERY DAY - Active verapamil ER (SR) 180 mg tablet,extended release TAKE 1 TABLET BY MOUTH EVERY DAY - Active aspirin 81 mg chewable tablet CHEW 1 TABLET BY MOUTH ONCE DAILY - Active BD Luer-Grace Syringe 3 mL 23 gauge x 1 1/2 USE TO INJECT TESTOSTERONE EVERY 2 WEEKS - No Longer Active testosterone cypionate 200 mg/mL intramuscular oil INJECT 1 ML INTO THE MUSCLE EVERY 2 WEEKS - No Longer Active prednisone 20 mg tablet TAKE 2 TABLETS BY MOUTH EVERY DAY FOR 5 DAYS - No Longer Active Procedures Procedure Date Complex e/m visit add on OFFICE/OUTPATIENT VISIT, EST ELECTROCARDIOGRAM, COMPLETE Advance Directives Directive Yes / No Effective Date File Name No Information Encounters Encounter Description Practice Location Reason(s) For Visit Diagnoses Date Provider Providers Copied on Encounter OFFICE/OUTPA TIENT VISIT, EST [facility], [address] [place] [address], [id number] , tel: [phone] [facility] [place] follow up (chief complaint) Hyperlipidemia, unspecifiedPalpitati onsEncounter for screening for cardiovascular disordersEncounter for preprocedural cardiovascular examination [address] Shannon Napier. [address] [place], [place] [address], [place], [id number] , . tel: [phone] Referring Provider: Karthikeyan Giraldo, [address] [place], [place] [address]Rosalie , [place], [address] . tel:[phone] [facility], [address] [place] [address], [id number] , tel: [phone] [facility] Prasanth No Information Pati Gudino. [address] [place], [place] [address], [id number] , . tel: [phone] Family History Family Member Type Diagnosis Age At Onset No Information Payers Payer name Insurance type Covered libertarian ID Katie patton(s) [facility] CI [id number] Social History Type Description Quantity Date Captured Comments Alcohol Use Details Unknown Caffeine Use Details Unknown Tobacco Use Status Current non-smoker Smoking Status Never smoker Non-Smoking Tobacco Use Details : No Details Available : No Details Available Sex Male Vital Signs Date / Time: Height Weight BMI Pulse Rate Blood Pressure Temperature Respiratory Rate Body Surface Area Head Circumference Head Circ. Percentile Wt./[place]. Percentile BMI percentile Pulse Ox Inhaled Ox 10:19 AM 74.00 in 113.852 kg (251.00 lbs) 32.2 3 kg/m eter (2) 80 /min 124/80 mm[Hg] 97 % Chief Complaint And Reason For Visit From encounter dated 01/27/2025 10:00'. follow up (chief complaint) Reason For Referral Reason For Referral No Information Plan Of Treatment Date Type Action Status Appointment Kavon Cortez BOOKED Future Order: Radiology Order CT A CORONARIES ([id number]), Ordered on: Ordered History Of Present Illness Encounter Date Complaint History Of Prese nt Illness follow up Functional Status Date Functional Assessmen t No Information Instructions Date Instruction Additional Infor mation No Information Assessments Type Assessment Date assessment Hyperlipidemia, unspecified assessment Palpitations assessment Encounter for screening for card iovascular disorders assessment Encounter for preprocedural card iovascular examination Patient Care Teams Name Effective Dates (start - stop) Status Members No Information
--- OUTSIDE RECORDS SUMMARY | 2025-02-27 11:28 | XMS_ITS | Clinical Summary ---
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 Gender Identity Not on file Sexual Orientation [...] 6:50 PM CDT Height 188 cm (6' 2) 08/10/2023 6:50 PM CDT Body Mass Index 30.81 08/10/2023 6:50 PM CDT Plan of Treatment Health Maintenance Due Date Last Done Comments Colon Cancer Screening-Colonoscopy 1961 Depression Screening 1961 Hepatitis C Screening 1961 Prostate Cancer Screening-PSA 1961 DTaP/Tdap/Td Vaccine (1 - Tdap) 1972 Hepatitis B Screening 08/24/1979 Regular Well Visit/Exam 18-64 08/24/1979 Zoster Vaccine (1 of 2) 08/24/2011 Influenza Vaccine (#1) 2024 01/16/2013 Pneumococcal vaccine <65 Aged Out No longer eligible based on patient's age to complete this topic Medical Devices Implanted Type Area Tenter Frame Operator Device Identifier Shelf Expiration Date Model / Serial / Lot Synthes Lcp Combi Philos [id number] 3 Hole Shaft Lock Compression 241.901 - [id number] Implanted:Qty: 1 on 07/02/2023 by Dedrick Buchanan MD at [facility] [employer] Synthes I 241.901 / / NONE Synthes 3.5mm 2.9mm 28mm Self Tap Lock Stardrive Conical Head T15 Full 212.110 - [id number] Implanted:Qty: 2 on 07/02/2023 by Dedrick Buchanan MD at [facility] Left: Humerus Synthes I 212.110 / / NONE Synthes 3.5mm 6mm 30mm 2.5mm Self Tap Small Hexagonal Socket Low Profile 204.830 - [id number] Implanted:Qty: 1 on 07/02/2023 by Dedrick Buchanan MD at [facility] [employer] Left: Humerus Synthes I 204.830 / / NONE Synthes 3.5mm 2.9mm 32mm Self Tap Lock Stardrive Conical Head T15 Full 212.112 - [id number] Implanted:Qty: 1 on 07/02/2023 by Dedrick Buchanan MD at [facility] [employer] Left: Humerus Synthes I 212.112 / / NONE Synthes 3.5mm 2.9mm 45mm Self Tap Lock Stardrive Conical Head T15 Full 212.119 - [id number] Implanted:Qty: 3 on 07/02/2023 by Dedrick Buchanan MD at [facility] Left: Humerus Synthes I 212.119 / / NONE Synthes 3.5mm 2.9mm 50mm Self Tap Lock Stardrive Conical Head T15 Full 212.121 - [id number] Implanted:Qty: 2 on 07/02/2023 by Dedrick Buchanan MD at [facility] [employer] Left: Humerus Synthes I 212.121 / / NONE Synthes 3.5mm 2.9mm 40mm Self Tap Lock Stardrive Conical Head T15 Full 212.117 - [id number] Implanted:Qty: 3 on 07/02/2023 by Dedrick Buchanan MD at [facility] [employer] Left: Humerus Synthes I 212.117 / / NONE Explanted Type Area Tenter Frame Operator Device Identifier Shelf Expiration Date Model / Serial / Lot Synthes 3.5mm 2.9mm 45mm Self Tap Lock Stardrive Conical Head T15 Full 212.119 - [id number] Explanted:Qty: 1 on 07/02/2023 by Dedrick Buchanan MD at [facility] Left: Humerus Synthes I 212.119 / / Synthes Lyndon 1.25mm 150mm Trocar Tip Wire Fixation Stainless Steel 292.12 - [id number] Explanted:Qty: 2 on 07/02/2023 by Dedrick Buchanan MD at [facility] Left: Humerus Synthes 292.12 / / NONE Synthes Lyndon 2mm 150mm Trocar Point Wire Fixation Nonsterile 292.20 - [id number] Explanted:Qty: 3 on 07/02/2023 by Dedrick Buchanan MD at [facility] [employer] Left: Humerus Synthes I 292.20 / / NONE Synthes Lyndon 1.6mm 150mm 5mm Trocar Point Thread Wire Fixation 292.71 - [id number] Explanted:Qty: 2 on 07/02/2023 by Dedrick Buchanan MD at [facility] Left: Humerus Synthes I 292.71 / / NONE Insurance [facility] CHOICE PLUS Member Subscriber Plan / Payer (Ef fective 2023-Present) Name:Kavon Wade Relation to Subscriber:Spouse Name:BEATRIZ WADE Date of :1966 (Home) Address: [address] [place] [address] Payer ID:[id number] (NAIC) Type:[facility] HMO/PPO Address: [place] [id number] [facility] CHOICE PLUS Member Subscriber Plan / Payer (Ef fective 2023-Present) Name:Kavon Wade Relation to Subscriber:Spouse Name:BEATRIZ WADE Date of :1966 (Home) Address: [address] [place] [address] Payer ID:[id number] (NAIC) Type:[facility] HMO/PPO Address: [place] [id number] Care Teams Jigger Crown Pouncing Machine Operator Relationship Specialty Start Date End Date Charley Pierce NP [address] [place] [address] PCP - General Family Medicine 06/20/23
--- OUTSIDE RECORDS SUMMARY | 2025-02-27 11:28 | XMS_ITS | Clinical Summary ---
Author Organization [facility] Address [address] [place] [address] Care Team Providers Care Cardiac Cath Lab Radiology Technologist Name Role Phone Unavailable Primary Care Provider Unavailabl e Source Comments [facility],non-owned Affiliates and Associated Physician Practices is amultiple site organization consisting of ambulatory clinics and hospital sitesin [place], [place], [place] and [place]. This disclosure is being madepursuant to the Care Everywhere program and may not contain all information available regarding this patient. Last updated 17.[facility] Allergies Active Allergy Reactions Criticality Noted Date Comments Prochlorperazine Myalgias 07/24/2018 Medications * Be aware that medications may not be up to date on this document. Alwaysverify current medications with the patient. amphetamine-dex troamphetamine (ADDERALL) 20 MG tablet Take 20 mg by mouth every morning Active venlafaxine XR 24hr (EFFEXOR XR) 150 MG capsule Take 150 mg by mouth daily with breakfast Active VERAPAMIL HCL ER PO Active LISINOPRIL PO Active ATORVASTATIN CALCIUM PO Active OtherIndication s:BP pill Reasons: BP pill Active fluticasone propionate (FLONASE) 50 MCG/ACT nasal sprayIndication s:Nasal Signs and Symptoms [place] 2 sprays into each nostril once daily Reasons: Signs and Symptoms of Nose Diseases 1 bottles 9 Active Social History Tobacco Use Types Packs/Day Years Used Date Smoking Tobacco: Passive Smo ke Exposure - Never Smoker Smokeless Tobacco: Never Sex and Gender Information Value Date Recorded Sex Assigned at Not on file Legal Sex Male 2:01 PM CDT Gender Identity Not on file [...] 3:48 PM CDT Height 188 cm (6' 2) 07/24/2018 3:48 PM CDT Body Mass Index [...] of 2) 08/24/2011 SCREENING FOR DIABETES 07/24/2018 DEPRESSION SCREENING 03/12/2024 COVID-19 VACCINE (1 - 2024-2 6 season) 2024 INFLUENZA VACCINE (#1) 2024 Respiratory Syncytial Virus (RSV) Vaccine Pt: or [...] patient's age to complete this topic Insurance [facility]
--- OUTSIDE RECORDS SUMMARY | 2025-02-27 11:28 | XMS_ITS | Clinical Summary ---
Author Organization [facility] Address [address] [place] [id number] Care Team Providers Care Circuit Design Engineer Name Role Phone Miguel Tyler DO Primary Care Provider [phone] Allergies No known active allergies Social History [...] 2:27 PM CDT Height 188 cm (6' 2) 09/26/2020 2:27 PM CDT Body Mass Index 30.81 09/26/2020 2:27 PM CDT Plan of Treatment Upcoming Encounters Date Type Department Care Team (Late st Contact Info) Description 03/19/2025 11:00 AM DIETARY SUPERVISOR Appointment [facility] [place] [address] Karthikeyan Ortega MD [facility] [id number] [place] [address] Health Maintenance Due Date Last Done Comments Colorectal Cancer Screening Colonoscopy (10 Years) 1961 Annual Physical 1964 Hepatitis C 08/24/1979 DTaP, Tdap and Td Vaccines ( 1 - Tdap) 1980 Pneumococcal Vaccine: 50+ Ye ars (1 of 1 - PCV) 08/24/2011 Zoster Vaccines (1 of 2) 08/24/2011 COVID-19 Vaccine ( - 2024-2 6 season) 2024 Influenza Adult (#1) 2024 RSV Immunization or 60+ Years (1 - 1-dose 75+ series) 2036 Hepatitis A Vaccines Aged Out No long er eligible based on patient's age to complete this topic Meningococcal B Vaccine Aged Out No l onger eligible based on patient's age to complete this topic Meningococcal Vaccine Aged Out No adelso sudha eligible based on patient's age to complete this topic RSV Immunizations Under 20 Months Aged Out No longer eligible based on patient's age to complete this topic Insurance [address] Care Teams Circuit Design Engineer Relationship Specialty Start Date End Date Miguel Tyler DO [address] [address] PCP - General INTERNAL MEDICINE 09/26/20
--- OUTSIDE RECORDS SUMMARY | 2025-02-27 11:29 | XMS_ITS | Patient Health Record ---
Author Organization [facility] Address [address] [place] [address] Care Team Providers Care Miniature Set Designer Name Role Phone Laith Toscano Unavailable [phone] Reason For Referral No Information Medications Medication SIG (Take, Route, Frequency, Duration) Notes Start Date End Date Status Lisinopril 20 MG Tablet Oral Active Sertraline HCl 100 MG Tablet Oral Active Docusate Sodium 100 MG Capsule Oral Active Cetirizine HCl 10 MG Tablet Oral Active CeleXA 20 MG Tablet Oral Active Fluticasone Propionate Diskus 50 MCG/ACT Aerosol Powder Breath Activated Inhalation *Reorder from [employer] for eRx and Interaction Alerts* Active LUER-MARVIN SYRINGE-NEEDLE 3 mL 23 x 1 SYRINGE, EMPTY DISPOSABLE MISCELLANEOUS *Reorder from [employer] for eRx and Interaction Alerts* Active Testosterone Cypionate 200 MG/ML Solution Intramuscular Active Lisinopril 40 MG Tablet Oral Active Nuvigil 150 MG Tablet Oral Active Zolpidem Tartrate 10 MG Tablet Oral Active SEROquel XR 150 MG Tablet Extended Release 24 Hour Oral Active Atorvastatin Calcium 20 MG Tablet Oral Active Fenofibrate 48 MG Tablet Oral Active HYDROcodone-Acetamino phen 5-325 MG Tablet Oral Active Desvenlafaxine ER 50 mg Tablet Extended Release 24 Hour Oral Active Wellbutrin XL 150 MG Tablet Extended Release 24 Hour Oral Active oxyCODONE HCl 5 MG Tablet Oral Active predniSONE 20 MG Tablet Oral Active Venlafaxine HCl ER 150 MG Capsule Extended Release 24 Hour Oral Active clonazePAM 0.5 MG Tablet Oral Active Ambien CR 12.5 MG Tablet Extended Release Oral Active Social History Social History Additional Details Category Social Info Options Details Migrated Social History Migrated Social History Tobacco Years: Never smoker 07/13/2023 Plan Of Treatment No Information
== END 2025-02-27 10:58 | disposition home or self-care (01) ==
LOC: ANHAUDIO 10:58
PROVIDERS: PCP Nurse Practitioner Family; Visit Provider Nurse Practitioner Family
DX: H92.03 Otalgia, bilateral (principal); R42 Dizziness and giddiness; H93.13 Tinnitus, bilateral; H91.90 Unspecified hearing loss, unspecified ear
CPT/HCPCS: 92557; 92567